=== PATIENT | male | born 1980 | race Caucasian/White ===

== ENCOUNTER → 2017-05-23 | Emergency (ER) | payer BC ==
[~2017-05-23] VITALS: Ht 172.7 cm; Wt 80.8 kg
[~2017-05-23] MED LIST: DIAZ2TAB PO
[2017-05-23 12:37] VITALS: BP 140/90
== END | disposition home or self-care (01) ==
LOC: ER 12:30
DX: Z76.0 Encounter for issue of repeat prescription (principal); G60.0 Hereditary motor and sensory neuropathy; Z79.899 Other long term (current) drug therapy
CPT/HCPCS: 99283